=== PATIENT | female | born 1980 | race Asian ===

== ENCOUNTER 2016-12-15 12:03 | Inpatient (IN) | payer OTHER ==
[~2016-12-15] VITALS: Ht 162.6 cm; Wt 68.2 kg
[2016-12-15 14:00] LABS: RED CELL DISTRIBUTION WIDTH 12.8 % (11.5-14.5)
[2016-12-15 14:02] LABS: UA SPECIFIC GRAVITY >=1.030 (1.005-1.035); microscopic required? YES; urine erythrocyte 1+ (NEGATIVE)
[2016-12-15 14:04] LABS: PLATELET COUNT 470 x10^3mcL (130-400)
[2016-12-15 14:17] LABS: CALCIUM 9.6 mg/dL (8.5-10.1); CARBON DIOXIDE 28.8 mmol/L (21-32); CREATININE SERUM 1.3 mg/dL (0.6-1.0)
[2016-12-15 14:21] LABS: ALBUMIN 4.3 g/dL (3.4-5.0); BILIRUBIN TOTAL 0.7 mg/dL (0.20-1.00); TOTAL PROTEIN, SERUM 8.5 g/dL (6.4-8.2)
[2016-12-15 14:39] LABS: BAND NEUTROPHIL 1 % (0-10); METAMYELOCTE 1 % (0-2); MONOCYTE 4 % (0-7); SEGMENTED NEUTROPHILS 89 % (37-75); rbc morphology (normal/abnorm) NORMAL (NORMAL)
[2016-12-15] MEDS ORDERED: NEXIUM40 MG (15:12)
[2016-12-15 16:51] VITALS: BP 111/75
[2016-12-15 17:09] VITALS: BP 111/75
[2016-12-15 17:12] VITALS: Ht 162.6 cm; Wt 68.2 kg
[2016-12-15 19:34] LABS: MAGNESIUM 2.6 mg/dL (1.8-2.4); PHOSPHOROUS 4.3 mg/dL (2.5-4.9)
[2016-12-15 20:37] LABS: T3 TOTAL 0.95 ng/mL
[2016-12-15 20:49] LABS: FREE T4 1.24 ng/dL (0.76-1.46); FREE THYROXINE INDEX 3.4 ug/dL (1.4-4.5); T4(THYROXINE) 10.6 ug/dL (4.7-13.3)
[2016-12-16 06:10] LABS: CALCIUM 7.8 mg/dL (8.5-10.1); CARBON DIOXIDE 29.1 mmol/L (21-32); CHLORIDE SERUM 104 mmol/L (98-107); GFR1 > 60 mL/min; GLUCOSE SERUM 115 mg/dL (74-106); MAGNESIUM 2.1 mg/dL (1.8-2.4); PHOSPHOROUS 3.5 mg/dL (2.5-4.9); POTASSIUM SERUM 4.3 mmol/L (3.5-5.1); SODIUM SERUM 138 mmol/L (136-145)
[2016-12-16 06:17] LABS: BASOPHIL % 0.2 % (0-2); PLATELET COUNT 343 x10^3mcL (130-400); RED CELL DISTRIBUTION WIDTH 12.8 % (11.5-14.5)
[2016-12-16 06:26] VITALS: BP 98/61
[2016-12-16 10:00] VITALS: BP 102/71
[2016-12-16 18:00] VITALS: BP 122/71
[2016-12-16 21:23] VITALS: BP 107/75
[2016-12-17 05:23] VITALS: BP 103/70
[2016-12-17 07:09] LABS: BASOPHIL % 0.7 % (0-2); PLATELET COUNT 325 x10^3mcL (130-400); RED CELL DISTRIBUTION WIDTH 12.7 % (11.5-14.5)
[2016-12-17 07:22] LABS: CALCIUM 7.6 mg/dL (8.5-10.1); CHLORIDE SERUM 107 mmol/L (98-107); CREATININE SERUM 0.6 mg/dL (0.6-1.0); GFR1 > 60 mL/min; GLUCOSE SERUM 93 mg/dL (74-106); POTASSIUM SERUM 3.7 mmol/L (3.5-5.1); SODIUM SERUM 140 mmol/L (136-145)
[2016-12-17 09:17] VITALS: BP 114/73
[2016-12-17 14:00] VITALS: BP 98/64
[2016-12-17 16:59] VITALS: BP 118/80
[2016-12-17 22:05] VITALS: BP 110/74
[2016-12-18 06:24] VITALS: BP 109/64
[2016-12-18 07:05] LABS: BASOPHIL % 0.5 % (0-2); CALCIUM 7.7 mg/dL (8.5-10.1); CHLORIDE SERUM 107 mmol/L (98-107); CREATININE SERUM 0.6 mg/dL (0.6-1.0); GFR1 > 60 mL/min; GLUCOSE SERUM 85 mg/dL (74-106); PHOSPHOROUS 2.5 mg/dL (2.5-4.9); PLATELET COUNT 304 x10^3mcL (130-400); POTASSIUM SERUM 3.6 mmol/L (3.5-5.1); RED CELL DISTRIBUTION WIDTH 12.5 % (11.5-14.5); SODIUM SERUM 139 mmol/L (136-145)
[2016-12-18 10:07] VITALS: BP 107/67
[2016-12-18 14:32] VITALS: BP 131/68
[2016-12-18 17:46] VITALS: BP 123/79
[2016-12-19 05:44] VITALS: BP 113/70
[2016-12-19 06:00] VITALS: BP 122/69
[2016-12-19 06:57] LABS: BASOPHIL % 0.5 % (0-2); PLATELET COUNT 301 x10^3mcL (130-400); RED CELL DISTRIBUTION WIDTH 12.6 % (11.5-14.5)
[2016-12-19 07:21] LABS: CALCIUM 7.4 mg/dL (8.5-10.1); CARBON DIOXIDE 21.9 mmol/L (21-32); CHLORIDE SERUM 105 mmol/L (98-107); CREATININE SERUM 0.6 mg/dL (0.6-1.0); GFR1 > 60 mL/min; GLUCOSE SERUM 78 mg/dL (74-106); MAGNESIUM 1.8 mg/dL (1.8-2.4); PHOSPHOROUS 2.6 mg/dL (2.5-4.9); POTASSIUM SERUM 3.3 mmol/L (3.5-5.1); SODIUM SERUM 139 mmol/L (136-145)
[2016-12-19 10:27] VITALS: BP 112/79
[2016-12-19] MEDS ORDERED: COLACE100 MG PO (10:34)
[2016-12-19] MEDS ORDERED: LACTULOSE10 GM/152 PO (10:34)
[2016-12-19] MEDS ORDERED: GAS RELIEF80 MG CH (10:35)
[2016-12-19] MEDS ORDERED: LEVAQUIN750 MG PO (10:43)
[2016-12-19 13:39] VITALS: BP 112/79
== END 2016-12-19 14:40 | disposition home or self-care (01) | DRG 388 ==
LOC: ED 12:03 → MU 15:29
PROVIDERS: Emergency Medicine; Family Medicine; ADMIT Family Medicine
DX: K56.60 Unspecified intestinal obstruction (principal); N17.0 Acute kidney failure with tubular necrosis; N39.0 Urinary tract infection, site not specified; R31.9 Hematuria, unspecified; N83.201 Unspecified ovarian cyst, right side; K21.9 Gastro-esophageal reflux disease without esophagitis; D64.9 Anemia, unspecified; Z68.25 Body mass index [BMI] 25.0-25.9, adult
CPT/HCPCS: 83880; 84439; J0744; J1170; J1885; J2405; J3490; J7030; Q0092; Q9966; Q9967